=== PATIENT | female | born 1985 | race Hispanic/Latino ===

== ENCOUNTER 2017-03-07 20:20 | Emergency (ER) | payer SELFPAY ==
[2017-03-07] MEDS ORDERED: Acetaminophen 500 MG TAB ONE (20:58)
== END 2017-03-07 22:16 | disposition home or self-care (01) ==
LOC: ERS 20:20
DX: H61.23 Impacted cerumen, bilateral (principal); F41.9 Anxiety disorder, unspecified
CPT/HCPCS: 99282